=== PATIENT | female | born 1980 | race Caucasian/White ===

== ENCOUNTER → 2023-03-15 | Outpatient (CLI) | payer OTHER ==
[~2023-03-15] VITALS: Ht 167.7 cm; Wt 128.8 kg
[~2023-03-15] MED LIST: NF-VITD400 PO; ONDA4TAB11 SL; VILA10TA PO
== END | disposition home or self-care (01) ==
LOC: PREOP 05:29
PROVIDERS: ATTEND Obstetrics & Gynecology
DX: Z01.818 Encounter for other preprocedural examination (principal)